=== PATIENT | female | born 1950 | race Caucasian/White ===

== ENCOUNTER → 2017-03-01 | Outpatient (CLI) | payer BC ==
[~2017-03-01] MED LIST: ALEVE220 M1 PO; ASPIRIN81 M2 PO; CENTRUM SILVER PO; DULCOLAX5 MG PO; FERRO-TIME325 MG PO; IRON18 MG; LORTAB 7.5-3251 EACH PO; MILK OF MAGNESIA PO; OXYCODONE APAP PO; PROBIOTIC1 EAC2 PO
--- NOTE | ~2017-03-01 | CT2 ---
[facility] A Service of [facility] & [facility] RADIOLOGY TEXT RESULTS PATIENT: BEN SNELL [facility] UN[facility] #: [id number] AGE: [address]: Jimbo Vargas MD SEX: F ORDER DR: [id number] [facility] [address] [place], [place] [address] [id number] O MR#: [id number] [facility] #: [id number] NAME: BEN SNELL : 1950 SEX: F STUDY DATE/TIME: 03/01/2017 9:19 UNIT: [facility] ROOM: STUDY DESCRIPTION: CT Abd and Pelv W Cont Attending Physician: Jimbo Vargas M.D. Referring Physician: Jimbo Vargas M.D. Ordering Physician: Jimbo Vargas M.D. Primary Care Physician: Indio Charles D.O. MEDICAL IMAGING REPORT This report is preliminary unless electronic signature is present EXAM CT abdomen and pelvis. INDICATION Colon cancer. Observation for metastatic disease. Restaging. Malignant neoplasm of the descending colon. TECHNIQUE CT of the abdomen and pelvis with p.o. and IV contrast (100 mL Isovue-370 IV contrast). Coronal and sagittal reconstructions were obtained. This CT exam was performed with one or more of the following radiation dose reduction techniques: automatic exposure control, adjustment of mA and/or kV according to patient size, and iterative reconstruction. COMPARISON PET/CT dated 03/24/2016. FINDINGS ABDOMEN: There is no evidence of metastatic disease or disease progression. The liver, pancreas, spleen, adrenal glands, and the kidneys are within normal limits. There is no hydronephrosis. The gallbladder is surgically absent. The bowel is not dilated. The patient is status post sigmoid colon resection with subsequent reanastomosis. There is a large volume of stool in the colon. The appendix is normal. No enlarged retroperitoneal or mesenteric lymph nodes. The abdominal aorta is normal in caliber. Patient has an incidental note of a retroaortic left renal vein. There are 2 large anterior abdominal hernias. A supraumbilical hernia contains part of the liver, stomach, and transverse colon. An infraumbilical hernia contains loops of small bowel and colon. There is diastases and atrophy of the rectus abdominis muscles. [facility]. [facility] A Service of [facility] & [facility] RADIOLOGY TEXT RESULTS PATIENT: BEN SNELL LOCATION: [facility] : 54 UNIT #: [id number] AGE: [address]: Jimbo Vargas MD SEX: F ORDER DR: PELVIS: There is a prior inguinal hernia repair. No enlarged pelvic or inguinal lymph nodes. Uterus and ovaries are within normal limits. The bladder is unremarkable. No acute osseous abnormalities. Grade 1 anterolisthesis L4 on L5 is due to facet arthropathy. IMPRESSION 1. No evidence of metastatic disease in the abdomen and pelvis. 2. Postsurgical change of sigmoid colon resection with subsequent reanastomosis. 3. Anterior abdominal wall hernias without complicating features. Dictated by... Adrian Graham M.D. THIS IS AN ELECTRONICALLY VERIFIED REPORT Adrian Graham M.D. at 03/01/2017 6:22 PM ARIELLE/donta TD: 03/01/2017 16:16 JOB #: [id number] MEDICAL IMAGING REPORT Page 1 of 1 COPY
[2017-03-01 11:31] LABS: POC - GFR >60.0 mL/min (>60)
== END | disposition home or self-care (01) ==
LOC: CCAT 08:07
PROVIDERS: Internal Medicine Medical Oncology
DX: C18.6 Malignant neoplasm of descending colon (principal); K43.9 Ventral hernia without obstruction or gangrene; Z90.49 Acquired absence of other specified parts of digestive tract
CPT/HCPCS: 74177; 82565; Q9967

== ENCOUNTER → 2017-04-15 | Outpatient (CLI) | payer BC ==
[2017-04-15 09:35] LABS: HEMATOCRIT 39.8 % (35.0-45.0); HEMOGLOBIN 13.2 gm/dL (12.0-16.0); MEAN CELL VOLUME 86.1 FL (83-96); MEAN CORPUSCULAR HEMOGLOBIN 28.5 PG (28-34); MEAN CORPUSCULAR HGB CONC 33.2 g/dL (30-36); MEAN PLATELET VOLUME 8.8 FL (6.5-11.5); RED BLOOD COUNT 4.63 X10e (3.90-5.30); RED CELL DISTRIBUTION WIDTH 13.6 % (11.0-15.5); WHITE BLOOD COUNT 6.9 X10e3 (4.0-10.5)
[2017-04-15 10:40] LABS: ALBUMIN SERUM 4.3 g/dL (3.5-5.0); BILIRUBIN,TOTAL 0.7 mg/dL (0.2-2.0); BUN/CREATININE RATIO 23.33; CALCIUM SERUM 9.6 mg/dL (8.4-10.2); CREATININE SERUM 0.6 mg/dL (0.6-1.4); GLOM FILT RATE Estimated 96.3 mL/min (>60); POTASSIUM 4.4 mmol/L (3.5-5.1); PROTEIN TOTAL SERUM 7.4 g/dL (6.0-8.3)
== END | disposition home or self-care (01) ==
LOC: CAMB 07:32
PROVIDERS: Specialist
DX: Z01.812 Encounter for preprocedural laboratory examination (principal); K43.9 Ventral hernia without obstruction or gangrene; Z85.038 Personal history of other malignant neoplasm of large intestine
CPT/HCPCS: 36415; 80053; 82378; 85027

== ENCOUNTER 2017-04-20 05:20 | Inpatient (IN) | payer BC ==
--- NOTE | ~2017-04-20 | DS ---
Unit #: [id number] #: [id number] Patient: BEN SNELL [id number] [facility]. [address] [place], [place] [address] [id number] I MR#: [id number] NAME: BEN SNELL ROOM: 460 Age: 66 Sex: F Admission Date: 04/20/2017 : 1950 Discharge Date: 04/22/2017 Attending Physician: Indio Gray M.D. Primary Care Physician: Indio Charles D.O. DISCHARGE SUMMARY HISTORY AND HOSPITAL COURSE Ms. Snell is a 66-year-old female with a history of obstructive metastatic colon cancer who required emergency surgery then subsequent chemotherapy. She also had a postoperative wound infection. She developed a very large, significant, and painful incisional ventral hernia and after she had completed her adjuvant therapy and she had had evaluation revealing no evidence of any residual disease, she requested repair of her hernia and, also, removal of her Mediport. She was brought in the morning of surgery where she underwent hernia repair and Mediport removal without incident. She was admitted to the hospital postoperatively to observe her ileus and for pain control. A Jagjit-Blake drain was placed in the subcutaneous tissues because the amount of mobilization of abdominal wall. She had persistent serosanguineous drainage. The patient has been taught how to use her Jagjit-Blake drain and will go home with that. She is tolerating a regular diet and ambulating independently. She is passing copious flatus and has had a small bowel movement. She is tolerating oral pain medication. Her wound is healing without complication and when the patient Valsalvas, it appears as though her hernia is well repaired. DISCHARGE INSTRUCTIONS/MEDICATIONS 1. Patient will be discharged home with instructions to ambulate ad flores. 2. Do no lifting or strenuous activity. 3. Continue to do sponge baths. 4. She is to keep her Jagjit-Blake drain engaged and follow up in the office next Wednesday. 5. She can undergo diet as tolerated. 6. Her med reconciliation sheet was completed and a prescription for Lortab was left for pain control. Patient understood these instructions and will be discharged home in stable condition. Dictated by... Indio Gray M.D. CHARLI/nubia TD: 04/23/2017 06:48 JOB #: [id number] Unit #: [id number] #: [id number] Patient: BEN SNELL DISCHARGE SUMMARY Page 1 of 1 X Indio Gray MD X DISCHARGE SUMMARY
--- NOTE | ~2017-04-20 | OR ---
Unit #: [id number] #: [id number] Patient: BEN SNELL [id number] [facility] [address] [place], [place] [address] [id number] I MR#: [id number] NAME: BEN SNELL. ROOM: 460 Date of Procedure: 04/20/2017 Admission Date: 04/20/2017 Surgeon: Indio Gray M.D. : 1950 Attending Physician: Indio Gray M.D. Primary Care Physician: Indio Charles D.O. OPERATIVE REPORT PREOPERATIVE DIAGNOSIS Incisional ventral hernia. POSTOPERATIVE DIAGNOSIS Incisional ventral hernia. PROCEDURES PERFORMED Exploratory laparotomy, lysis of adhesions x60 minutes, component separation, incisional ventral hernia repair with 24 x 19 cm Ventralex mesh, placement of Jagjit-Blake drain, and MediPort removal. ANESTHESIA General endotracheal anesthesia. ESTIMATED BLOOD LOSS 100 mL. INDICATIONS FOR PROCEDURE A 66-year-old female, who initially presented with a colon obstruction from a colon cancer, requiring emergent surgery. She was found to have advanced stage disease and postoperatively underwent chemotherapy. During this period of time, she developed a large and complex incisional ventral hernia. She now completed her adjuvant therapy. There was no evidence of disease and because of the discomfort and disfigurement, the patient would like to have a hernia repair. She also would like to have her MediPort removed. DESCRIPTION OF PROCEDURE The patient was admitted to [facility], positively identified, and transported to the operating room, and after induction of general endotracheal anesthesia, she received IV antibiotics per SCIP protocol. SCDs were placed. Her abdominal wall hair was clipped, and she was prepped and draped in usual sterile fashion to include the MediPort site. Her old midline incision was excised. We dissected down and there were multiple large fascial defects with a complex hernia sacs extending into the subcutaneous tissue. The largest hernia sac was opened. We dissected down and reduced incarcerated, but unobstructed small bowel from the hernia sac and then could dissect on down in the abdominal cavity, opening the midline fascia connecting all of the different fascial defects. I then dissected the hernia sacs out of the subcutaneous tissue and identified the edge of the fascia. I initially wanted to do a submuscular mesh placement, but her submuscular tissue planes were unable Unit #: [id number] #: [id number] Patient: BEN SNELL to be adequately dissected out to facilitate the mesh. For this reason, a bilateral component separation was then performed and an intraperitoneal skirted 24 x 19 cm Ventralex mesh was placed after all the adhesions had been taken down in the anterior abdominal wall had been cleared. The mesh was secured with multiple #1 Vicryl sutures below the fascia circumferentially. In between the sutures, the open absorbable mesh tacker was used to secure the mesh circumferentially to prevent any herniation between the fascia and the mesh. Once the mesh was adequately positioned due to the component separation, I was then able to close the fascia and the rectus muscles in the midline without significant tension. I irrigated and sponges and needle counts were correct x3. Soft tissue was closed with interrupted 2-0 Vicryl sutures. Through a separate stab incision, a Jagjit-Blake drain was placed over the fascia and secured with 2-0 silk suture and the skin was then closed with sterile skin russ and a dry sterile dressing was placed. After completion of the abdominal portion, I went up to the MediPort site. Incision was made above the MediPort. I dissected down and removed the MediPort and its fibrous capsule from the surrounding soft tissue and removed the Silastic catheter from the subclavian vein. The fibrous tract into the vein was suture-ligated with 3-0 silk suture. I irrigated and ensured hemostasis, closed the skin with 4-0 Monocryl subcuticular closure and Dermabond skin adhesive. Sponges and needle counts were correct x3. The patient tolerated the procedure well and transported to recovery in stable condition. Findings and postoperative expectations were discussed with her family. Dictated by... Pauline Hernández/rhoda TD: 04/21/2017 01:22 JOB #: [id number] OPERATIVE REPORT Page 1 of 1 X Indio Gray MD PROCEDURE OPERATIVE NOTE
[~2017-04-20 05:20] MED LIST changes: -LORTAB 7.5-3251 EACH PO; -MILK OF MAGNESIA PO
[2017-04-21 03:28] LABS: BASOPHIL% 0.1 % (0-2.5); EOSINOPHIL# 0.2 X10e3 (0-0.7); HEMATOCRIT 33.7 % (35.0-45.0); HEMOGLOBIN 11.1 gm/dL (12.0-16.0); LYMPHOCYTE# 0.6 X10e3 (1.0-3.5); LYMPHOCYTE% 5.5 % (17.0-45.0); MEAN CELL VOLUME 85.6 FL (83-96); MEAN CORPUSCULAR HEMOGLOBIN 28.1 PG (28-34); MEAN CORPUSCULAR HGB CONC 32.9 g/dL (30-36); MEAN PLATELET VOLUME 8.6 FL (6.5-11.5); MONOCYTE# 0.9 X10e3 (0-1.0); MONOCYTE% 8.2 % (3.0-12.0); NEUTROPHIL# 9.8 X10e3 (1.5-7.1); NEUTROPHIL% 84.2 % (40-75); PLATELET COUNT 184 X10e3 (140-420); RED BLOOD COUNT 3.94 X10e (3.90-5.30); RED CELL DISTRIBUTION WIDTH 12.8 % (11.0-15.5); WHITE BLOOD COUNT 11.6 X10e3 (4.0-10.5)
[2017-04-21 03:29] LABS: DIFF IND NO
[2017-04-21 03:55] LABS: CALCIUM SERUM 8.3 mg/dL (8.4-10.2); CREATININE SERUM 0.5 mg/dL (0.6-1.4); GLOM FILT RATE Estimated 102.3 mL/min (>60); MAGNESIUM 1.7 mg/dL (1.6-3.0); PHOSPHOROUS 3.7 mg/dL (2.5-4.6); POTASSIUM 4.1 mmol/L (3.5-5.1)
[2017-04-22] MEDS ORDERED: MILK OF MAGNESIA PO (07:51)
[2017-04-22] MEDS ORDERED: LORTAB 7.5-3251 EACH PO (07:52)
== END 2017-04-22 11:05 | disposition home or self-care (01) | DRG 337 ==
LOC: CSUR 05:20 → CPACUOF 10:12 → C4B 10:12 → CPACUOF 10:28 → CSUR 10:28 → C4B 16:40 → CPACUOF 16:40 → C4B 04-22 11:05
PROVIDERS: Specialist
PROC: 0JPV0XZ Removal of Tunneled Vascular Access Device from Upper Extremity Subcutaneous Tissue and Fascia, Open Approach (ICD-10-PCS; 2017-04-20)
PROC: 0WUF4JZ Supplement Abdominal Wall with Synthetic Substitute, Percutaneous Endoscopic Approach (ICD-10-PCS; principal; 2017-04-20 07:30)
PROC: 0DNW4ZZ Release Peritoneum, Percutaneous Endoscopic Approach (ICD-10-PCS; 2017-04-20 07:30)
DX: K91.3 Postprocedural intestinal obstruction (principal); G89.18 Other acute postprocedural pain; K21.9 Gastro-esophageal reflux disease without esophagitis; K43.2 Incisional hernia without obstruction or gangrene; Z90.49 Acquired absence of other specified parts of digestive tract; Z80.0 Family history of malignant neoplasm of digestive organs; Z83.3 Family history of diabetes mellitus; Y83.9 Surgical procedure, unspecified as the cause of abnormal reaction of the patient, or of later complication, without mention of misadventure at the time of the procedure; K66.0 Peritoneal adhesions (postprocedural) (postinfection)
CPT/HCPCS: 80048; 83735; 84100; 85025; 88302; 94760; C1781; C9113; J0131; J0330; J0690; J1100; J1170; J1650; J1885; J2250; J2405; J2710; J2765; J3010